=== PATIENT | female | born 1985 | race Caucasian/White ===

== ENCOUNTER → 2018-04-01 | Outpatient (CLI) | payer BC ==
--- NOTE | 2018-04-01 09:07 | Diagnostic Imaging Report ---
PROCEDURE:US GALLBLADDER COMPARISON:[facility] - [place], CT, CT ABDOMEN/PELVIS W, 07/13/2017, 8:10. INDICATION:Right upper quadrant pain TECHNIQUE:Rain scale and color Doppler ultrasound gallbladder FINDINGS: Imaged portions of the inferior vena cava, abdominal aorta, pancreas and right kidney are normal. Right liver span is 14.4 cm. Mildly increased echogenicity. Smooth contour. Portal vein diameter 0.9 cm; normal flow direction. Normal gallbladder. Wall thickness 0.2 cm. Common bile duct diameter 0.3 cm. CONCLUSION: 1. Normal gallbladder. 2. Mildly echogenic liver in keeping with steatosis. Dictated by: Tez Jones M.D. on 04/01/2018 at 9:11 Electronically approved by: Tez Jones M.D. on 04/01/2018 at 9:11
--- NOTE | 2018-04-01 18:34 | Diagnostic Imaging Report ---
Hepatobiliary Scan with Gallbladder Ejection Fraction Clinical information: 32 F with intermittent RUQ abdominal pain x 6 months Report: Following intravenous administration of 7 millicuries of Tc-99m mebrofenin, dynamic images of the abdomen in the anterior projection were obtained through 40 minutes. Sincalide (CCK analog) 2.0 micrograms was administered intravenously over 30 minutes with additional imaging for determination of gallbladder ejection fraction. Perfusion to the liver is normal. Extraction of tracer from the blood pool by the liver parenchyma is normal. Tracer is seen promptly within the biliary tract. The gallbladder begins to fill by 8 minutes post-injection of tracer and fills adequately. Tracer is seen in the small bowel by 28 minutes. The gallbladder ejection fraction with administration of sincalide is 57% (normal greater than 40%). Impression: 1. Filling of the gallbladder excludes the diagnosis of acute cystic duct obstruction/acute cholecystitis. 2. Normal gallbladder ejection fraction of 57% does not support the clinical diagnosis of chronic cholecystitis/gallbladder dyskinesia. Signed by: Dr. Naomi Hicks M.D. on 04/01/2018 6:30 PM
== END ==
LOC: US 07:45
PROVIDERS: ATTEND Internal Medicine Gastroenterology
DX: R10.9 Unspecified abdominal pain (principal)
CPT/HCPCS: 76705; 78227; A9537